=== PATIENT | male | born 1995 | race Two or more races ===

== ENCOUNTER → 2016-10-20 | Day surgery (SDC) | payer MEDICAID ==
[~2016-10-20] VITALS: Ht 157.5 cm; Wt 120.9 kg
[~2016-10-20] MED LIST: ACET-703 PO; BUPIVACAINE HCL PF 0.5% 30 ML VIAL ONE; CHLORHEXIDINE GLUCONATE 2 % 1 PACK (2 CLOTHS) TOPICAL PRN; DO NOT ADM ANY ANTICOAGULANT DRUGS PRN; INSULIN HUMAN REGULAR 1,000 UNITS/10 ML VIAL SQ PRN; KETOROLAC TROMETHAMINE 60 MG/2 ML (IM) VIAL IM ONE; LACTATED RINGER'S 1000 ML IV PRN; METOPROLOL TARTRATE 25 MG TAB PO PRN; MIDAZOLAM HCL 2 MG/2 ML VIAL ONE; NEOSTIGMINE 3 MG/3 ML SYR IV ONE; ONDANSETRON HCL 4 MG/2 ML VIAL IV PUSH ONE; POVIDONE IODINE 5% (ANTISEPSIS KIT) 4 APPLICATIONS EACH NARE PRN; PROPOFOL 200 MG/20 ML AMP IV ONE; SODIUM CHLORID 0.9% 500 ML IV PRN; ceFAZolin 1,000 MG/NS 100 ML IV SCH
[2016-10-20 07:48] VITALS: BP 183/108; PULSE 86; RESP 16; TEMP 99.3; O2SAT 95
[2016-10-20 08:07] LABS: AUTOMATED NEUTROPHIL # 4.2 TH/MM3 (1.8-7.7); BASOPHIL % 0.5 % (0.0-2.0); EOSINOPHIL # 0.1 TH/MM3 (0-0.4); EOSINOPHIL % 1.6 % (0.0-4.0); HEMATOCRIT 41.8 % (39.0-51.0); HEMO FLAGS DIFF FINAL; LYMPH % 37.1 % (9.0-44.0); LYMPHOCYTE # 2.9 TH/MM3 (1.0-4.8); MEAN CELL VOLUME 88.7 FL (80.0-100.0); MEAN CORPUSCULAR HEMOGLOBIN 30.9 PG (27.0-34.0); MEAN CORPUSCULAR HGB CONC 34.9 % (32.0-36.0); MONO % 8.3 % (0.0-8.0); NEUT % 52.5 % (16.0-70.0); PLATELET COUNT 205 TH/MM3 (150-450); RED BLOOD COUNT 4.71 MIL/MM3 (4.50-5.90); WHITE BLOOD COUNT 7.9 TH/MM3 (4.0-11.0)
--- NOTE | 2016-10-20 11:25 | PD.OP ---
Operative Report Date of Surgery: Oct 20, 2016 Preoperative Diagnosis: Phimosis Postoperative Diagnosis: Phimosis and meatal stenosis Procedure: Circumcision with urethral dilation Anesthesia: Gen. LMA Surgeon: Kasi Araiza Farm Technician(s): Shannon Acevedo Resident Surgeon: None Operation and Findings: 20-year-old male with history of phimosis and difficulty urinating. Decision was made to bring the patient to the operating room to undergo circumcision. Risk and benefits were discussed preoperatively and he was willing to proceed. Patient is brought the operating room and identified by myself as Gregory Hernandez. He was placed on the operating room table in the supine position, prepped and draped in usual sterile fashion, received preprocedure antibiotics and general LMA anesthesia was administered. Half percent Marcaine was administered as a penile block. Straight clamp was used to clamp the foreskin at the 12 o'clock position and allowed to sit for a few minutes. The scissors was then used to incise the foreskin at the 12 o'clock position. This incision was brought just back to the base of the phallus. Circumferential incision was then made on the skin just behind the penile head. Another circumferential incision was then made around the redundant foreskin. Excess foreskin was then excised. Hemostasis was then obtained. The foreskin was then circumferentially sewed together with interrupted 4-0 chromic sutures. The meatus of the penis was noted to be constricted and urethral dilators were used starting with a 14 Armenian up to a 20 Armenian. Dressings were applied and he was awoken and transferred to recovery in stable condition. Kasi Araiza DO Oct 20, 2016 11:25
[2016-10-20 13:51] VITALS: BP 127/77; PULSE 73; RESP 16; TEMP 97.3; O2SAT 98
== END | disposition home or self-care (01) ==
LOC: HSDC 06:52
PROVIDERS: ATTEND Urology
DX: N47.1 Phimosis (principal); N35.9 Urethral stricture, unspecified
CPT/HCPCS: 00920; 52281; 54161; 85025; 88304; J0690; J1885; J2250; J2405; J2710; J3010; J7120; 88302